=== PATIENT | female | born 1990 | race Caucasian/White ===

== ENCOUNTER 2016-04-11 09:35 | Inpatient (IN) | payer OTHER ==
[2016-04-11] MEDS ORDERED: PEPCID PO ONE (09:38)
[2016-04-11] MEDS ORDERED: TYLENOL PO PRN (09:38)
[2016-04-11] MEDS ORDERED: PEPCID PO PRN (09:38)
[2016-04-11] MEDS ORDERED: ZOFRAN IV PRN (09:38)
[2016-04-11] MEDS ORDERED: AMPICILLIN 2 GM/NS 100 ML IV ONE (09:38)
[2016-04-11] MEDS ORDERED: PEPCID IV PRN (09:38)
[2016-04-11] MEDS ORDERED: STADOL IV PRN (09:38)
[2016-04-11] MEDS ORDERED: REGLAN PO ONE (09:38)
[2016-04-11] MEDS ORDERED: KEFZOL 1 GM/D5W 50 ML IV PRN (09:38)
[2016-04-11] MEDS ORDERED: LR 500 ML IV ONE (09:38)
[2016-04-11] MEDS ORDERED: SODIUM CHLORIDE 0.9% INJ SCH (09:45)
[2016-04-11] MEDS ORDERED: PITOCIN 30 UNITS/LR 500 ML IV SCH (09:45)
[2016-04-11] MEDS: LR 1,000 ML IV SCH (10:10)
[2016-04-11 10:45] LABS: MANUAL DIFF NEEDED? NO
[2016-04-11 10:47] LABS: BASO% 0.2 % (0.0-0.8); EOS# 0.06 X1000 (0.0-0.7); EOS% 0.6 % (0.0-10.0); HEMATOCRIT 33.2 % (37.0-47.0); HEMOGLOBIN 11.4 g/dL (12.0-16.0); IMM GRAN# 0.16 X1000 (0.0-0.04); IMM GRAN% 1.6 % (0.0-0.5); LYMPH# 1.22 X1000 (1.2-3.4); LYMPH% 12.3 % (20.5-51.1); MCH 31.5 PG (27-31); MCHC 34.3 g/dL (33-37); MCV 91.7 FL (81-99); MONO# 0.89 X1000 (0.11-0.59); MPV 9.9 FL (7.4-10.4); NEUT% 76.3 % (42.2-75.2); PLT 299 X1000 (130-400); RBC 3.62 XMIL (4.2-5.4)
[2016-04-11] MEDS ORDERED: FENTANYL-BUPIV-NS 2 MCG-0.1% 200 ML EPIDURAL PRN (10:54)
[2016-04-11] MEDS ORDERED: MARCAINE 0.25% PF INJ ONE (11:00)
[2016-04-11] MEDS: AMPICILLIN 1 GM/NS 50 ML IV SCH (14:15)
[2016-04-11] MEDS ORDERED: MINERAL OIL ONE (16:16)
[2016-04-11] MEDS ORDERED: EPHEDRINE ONE (16:23)
[2016-04-11] MEDS ORDERED: SODIUM CHLORIDE 0.9% 0 ML ONE (16:24)
[2016-04-11] MEDS ORDERED: HYDROXYZINE IM PRN (17:09)
[2016-04-11] MEDS ORDERED: CYTOTEC PO PRN (17:09)
[2016-04-11] MEDS ORDERED: BENADRYL IV PRN (17:09)
[2016-04-11] MEDS ORDERED: PITOCIN 30 UNITS/LR 500 ML IV ONE (17:09)
[2016-04-11] MEDS ORDERED: BOOSTRIX VACCINE IM ONE (17:09)
[2016-04-11] MEDS ORDERED: XYLOCAINE-MPF 1% INJ PRN (17:09)
[2016-04-11] MEDS ORDERED: PITOCIN IM PRN (17:09)
[2016-04-11] MEDS ORDERED: MINERAL OIL MISC PRN (17:09)
[2016-04-11] MEDS ORDERED: BENADRYL PO PRN (17:09)
[2016-04-11] MEDS ORDERED: NORCO-5 PO PRN (17:09)
[2016-04-11] MEDS ORDERED: PERI MEDS (DERMOPLAST/NUPERCAINAL/TUCKS) MISC PRN (17:09)
[2016-04-11] MEDS ORDERED: NORCO-10 PO PRN (17:09)
[2016-04-11] MEDS ORDERED: M-M-R II VACCINE SUBQ ONE (17:09)
[2016-04-11] MEDS ORDERED: HYDROXYZINE PO PRN (17:09)
[2016-04-11] MEDS ORDERED: AMBIEN PO PRN (17:09)
[2016-04-11] MEDS ORDERED: PITOCIN 20 UNITS/LR 1,000 ML IV SCH (17:15)
[2016-04-11] MEDS: PERICOLACE PO SCH (21:11)
[2016-04-11] MEDS: MOTRIN PO PRN (21:11)
[2016-04-12 05:55] LABS: HEMATOCRIT 31.2 % (37.0-47.0); HEMOGLOBIN 10.5 g/dL (12.0-16.0); MCH 31.1 PG (27-31); MCHC 33.7 g/dL (33-37); MCV 92.3 FL (81-99); MPV 10.1 FL (7.4-10.4); RBC 3.38 XMIL (4.2-5.4)
[2016-04-12] MEDS: MOTRIN PO PRN (14:58)
[2016-04-12] MEDS: LR 1,000 ML IV SCH (15:19)
[2016-04-12] MEDS: AMPICILLIN 1 GM/NS 50 ML IV SCH (15:19)
[2016-04-12] MEDS: PERICOLACE PO SCH (20:57)
[2016-04-13] MEDS: MOTRIN PO PRN (07:37)
[2016-04-13 08:14] VITALS: BP 113/78
== END 2016-04-13 11:30 | disposition home or self-care (01) | DRG 775 ==
LOC: P.LD 09:35
PROVIDERS: ADMIT Obstetrics & Gynecology; ATTEND Obstetrics & Gynecology
PROC: 3E033VJ Introduction of Other Hormone into Peripheral Vein, Percutaneous Approach (ICD-10-PCS; 2016-04-11)
PROC: 10E0XZZ Delivery of Products of Conception, External Approach (ICD-10-PCS; principal; 2016-04-11 16:39)
DX: O41.03X0 Oligohydramnios, third trimester, not applicable or unspecified (principal); Z37.0 Single live birth; Z3A.37 37 weeks gestation of pregnancy
CPT/HCPCS: 36415; 59025; 85025; 85027; 86592; J0290; J2590; J7120; S0020